=== PATIENT | female | born 1970 | race Caucasian/White ===

== ENCOUNTER 2022-06-17 16:19 | Outpatient (CLI) | payer BC, SELFPAY ==
[2022-06-17 14:13] LABS: Alanine Aminotransferase* 45 U/L (4-35); Aspartate Amino Transferase* 53 U/L (12-35)
== END 2022-06-17 16:20 | disposition home or self-care (01) ==
PROVIDERS: PCP Physician Assistant Medical; Visit Provider Physician Assistant Medical
DX: E11.9 Type 2 diabetes mellitus without complications (principal)
CPT/HCPCS: 84450; 84460

== ENCOUNTER 2022-12-22 16:05 | Emergency (ER) | payer BC, SELFPAY ==
[2022-12-22 16:08] VITALS: BP 194/64; PULSE 91; RESP 16; TEMP 36.3; O2SAT 98; BMI 31.8
--- NOTE | 2022-12-22 17:26 | CRLHL7_ITS ---
For Patients: As a result of the Century Cures Act, medical imaging exams and procedure reports are released immediately into your electronic medical record. You may view this report before your referring provider. If you have questions, please contact your health care provider. INDICATION: Right upper quadrant abdomen pain. TECHNIQUE: Ultrasound abdomen limited. Sonographic images of the right upper quadrant were obtained using givens-scale and color Doppler images. COMPARISON: None. FINDINGS: Liver: Diffuse increased echogenicity. Gallbladder: Multiple tiny shadowing stones. Normal wall thickness. Questionable trace pericholecystic fluid. Sonographic Parker sign is reported as negative by technologist. Common bile duct: 13 mm. Pancreas: Portions of the pancreas are obscured secondary to overlying bowel gas. Right kidney: Normal in size. Normal echotexture and cortex. No shadowing stones, or hydronephrosis. Vasculature: Proximal abdominal aorta and IVC are unremarkable. IMPRESSION: Multiple tiny shadowing stones. Normal wall thickness. Questionable trace pericholecystic fluid. Sonographic Parker sign is reported as negative by technologist. Common bile duct measures up to 13 millimeters. Given clinical history of painless jaundice, a more distal obstructing lesion is considered in the differential. Recommend further evaluation with dedicated abdominal MRI MRCP. Dictated by Juni Beebe MD @ 12/22/2022 6:54:41 PM (Electronically Signed)
[2022-12-22 17:47] LABS: Basophils Percent Auto 1.2 % (0.0-3.0); Eosinophils Percent Auto 1.9 % (0.0-7.0); Hematocrit 34.9 % (33.0-51.0); Hemoglobin* 11.4 gm/dL (12.0-16.0); Immature Granulocytes Pct Auto 1.4 %; Lymphocytes Percent Auto 22.8 % (20-44); Mean Corpuscular HGB Conc 33 gm/dL (32-36); Mean Corpuscular Hemoglobin 30 pg (26-34); Mean Corpuscular Volume 93 fL (80-100); Monocytes Percent Auto 7.4 % (0.0-11.0); Neutrophils Percent Auto 65.3 % (42.0-72.0); Platelet Count* 434 K/uL (140-440); RDW Coefficient of Variation % 14.4 % (11.5-15.5); Red Blood Count 3.75 m/uL (4.00-5.20); White Blood Count* 11.87 K/uL (4.50-11.00)
[2022-12-22 17:48] LABS: Slide Review Reflex No
[2022-12-22 17:52] LABS: Appearance Urine Clear (Clear); Bilirubin Urine 1+ (Negative); Blood Urine Negative (Negative); Color Urine Yellow (Yellow); Glucose Urine Negative (Negative); Ketones Urine Negative (Negative); Leukocyte Esterase Urine Negative (Negative); Nitrite Urine Negative (Negative); Protein Urine Negative (Negative); Specific Gravity Urine <= 1.005 (1.000-1.030); pH Urine 5.5 (5.0-8.5)
--- NOTE | 2022-12-22 17:53 | ED_ITS ---
HPI - General Adult General Chief complaint: Unspecified Complaint, Adult Stated complaint: Jaundice Time Seen by Provider: 12/22/22 16:22 History of Present Illness HPI narrative: 52-year-old woman presenting to the emergency department on recommendation from clinic for workup of painless jaundice. noticed 3 - 4 days ago the yellowing of her skin. Christal notes that about 10 days ago she noticed some darkening of her urine lightening of her stool and has been persistently itchy. Does endorse a history of alcohol use. Three weeks ago discontinued this as she just was not feeling very well. She has really just been trying to hydrate with water now. She has between her and her been drinking 1 L and 3/4 of vodka every 2 days mixed with Truly to some degree. They are under the impression that elevated levels of bilirubin a very dangerous and are quite con cerned here today. They are anticipating abdominal CT. Further questioning does reveal a family history of what sounds like alcoholism and liver failure I believe Christal's father. No rheumatological disorders or metabolic problems are noted. Does recall a family member with a platelet problem that may have required a splenectomy? Christal did discontinue her omeprazole for some degree of heartburn about a week ago and has not experienced heartburn since. She thought maybe she was starting to see some of the side effects. Otherwise there been no medication changes. Medications are reviewed. There are certainly medications that are liver metabolize. Otherwise has not had any fever or rash is just the itch, no recent illness or exposures, no abdominal pain episodes or persistent. Related Data Home Medications Medication Instructions Recorded Confirmed Multivitamins PO 03/12/22 12/22/22 atenolol 50 mg tablet mg PO DAILY 03/12/22 12/22/22 atorvastatin 20 mg tablet mg PO .Bedtime 03/12/22 12/22/22 calcium carbonate 600 mg-vitamin 1 tab PO DAILY 03/12/22 12/22/22 D3 20 mcg (800 unit) tablet fluticasone propionate 50 2 intranasal .Daily as needed PRN 03/12/22 12/22/22 mcg/actuation nasal spray,suspension hydroxyzine HCl 50 mg tablet mg PO PRN 03/12/22 12/22/22 mometasone 50 mcg/actuation nasal 2 intranasal DAILY 03/12/22 12/22/22 spray venlafaxine 75 mg capsule,extended 75 mg PO DAILY 03/12/22 12/22/22 release 24 hr Previous Rx's Medication Instructions Recorded epinephrine 0.3 mg/0.3 mL 0.3 mg (0.3 mL) IM .As Needed as 03/12/22 injection, auto-injector needed PRN anaphylaxis #2 ea azelastine 137 mcg (0.1 %) nasal See Rx Instructions .Route 05/06/22 spray aerosol .COMPLEX #30 mL cromolyn 4 % eye drops 1 drp ophthalmic (eye) BID PRN 05/13/22 allergic symptoms #10 mL azelastine 0.05 % eye drops 1 drp ophthalmic (eye) BID #6 mL 08/04/22 montelukast 10 mg tablet See Rx Instructions .Route 08/04/22 .COMPLEX #90 tabs metformin 500 mg tablet,extended 1,500 mg PO DAILY #270 tabs 12/03/22 release 24 hr Allergies Allergy/AdvReac Type Severity Reaction Status Date / Time Poultry Allergy Severe Anaphylaxis Verified 12/22/22 16:16 amoxicillin Allergy Intermediate Rash Verified 12/22/22 16:16 Penicillins Allergy Intermediate Rash Verified 12/22/22 16:16 azithromycin Allergy Mild Itchiness Verified 12/22/22 16:17 lisinopril AdvReac Intermediate Cough Verified 12/22/22 16:16 Review of Systems Status of ROS: Reports: 10 or more systems reviewed and unremarkable except as noted in History and below [facility] Surgical History History of dilation and curettage ?Z98.890 - Other specified postprocedural states (ICD-10) History of tonsillectomy and adenoidectomy ?Z90.89 - Acquired absence of other organs (ICD-10) Family History Other High blood pressure Hyperlipidemia Lung cancer Prostate cancer Social History Narrative: - newly remarried; 2020- Tim Smoking Status: Former smoker Do you use any of these nicotine containing products: None Second hand tobacco smoke exposure: No How often do you have a drink containing alcohol: 4 or more times a week How many standard drinks containing alcohol do you have on a typical day: 3 or 4 How often do you have six or more drinks on one occasion: Weekly AUDIT-C Alcohol total score: 8 Non-prescribed substance use: denies use Little interest or pleasure in doing things: not at all Feeling down, depressed, or hopeless: not at all Exam Narrative: Exam Narrative: Very pleasant. Mildly anxious I think appropriately so. Skin is warm and dry with some degree of jaundice extending to mid thorax. Scleral icterus is evident. Oropharynx is moist neck is supple without LA. Lungs appear to be clear. Heart with intermittently irregular rhythm. Mildly elevated rate. No murmur rub or gallop otherwise identified. Abdomen is soft overweight. Unconvinced of hepatomegaly. Nontender. No masses appreciated. No fluid wave apparent. Cranial nerves 2-12 intact. Breathing easily. Extremities are well perfused. She has trace lower extremity nonpitting edema. Const: Vital Signs, click to edit/add: Vital Signs - 24 hr 12/22/22 16:08 12/22/22 19:07 12/22/22 20:04 Temperature 97.4 F L Pulse Rate [Pulse Oximeter] 91 83 82 Respiratory Rate 16 18 17 Blood Pressure [Ri ght Upper Arm] 194/64 H 194/82 H 198/110 H Pulse Oximetry 98 95 95 Oxygen Delivery Me thod Room Air Room Air Documenting provider has reviewed patient's vital signs: yes Course Vital Signs Vital signs: Initial Vital Signs Temperature 97.4 F L 12/22/22 16:08 Temperature Source Temporal Artery Scan 12/22/22 16:08 Pulse Rate 91 12/22/22 16:08 Respiratory Rate 16 12/22/22 16:08 Blood Pressure 194/64 H 12/22/22 16:08 Blood Pressure Mean 107 H 12/22/22 16:08 Blood Pressure Position Sitting 12/22/22 16:08 Pulse Oximetry 98 12/22/22 16:08 Oxygen Delivery Method Room Air 12/22/22 16:08 Vital Signs Temperature 97.4 F L 12/22/22 16:08 Pulse Rate 91 12/22/22 16:08 Respiratory Rate 16 12/22/22 16:08 Blood Pressure 194/64 H 12/22/22 16:08 Pulse Oximetry 98 12/22/22 16:08 Oxygen Delivery Method Room Air 12/22/22 16:08 Temperature 97.4 F L 12/22/22 16:08 Pulse Rate 82 12/22/22 20:04 Respiratory Rate 17 12/22/22 20:04 Blood Pressure 198/110 H 12/22/22 20:04 Pulse Oximetry 95 12/22/22 20:04 Oxygen Delivery Method Room Air 12/22/22 20:04 Medical Decision Making MDM Narrative Medical decision making narrative: Differential of jaundice is certainly broad. I suspect alcohol-related. Does not sound to be obstructive and is afebrile without pain so less likely and less likely to be infectious. I do not appreciate skin pigmentation changes beyond the jaundice so probably not hemochromatosis. I do not appreciate splenomegaly. History of mildly elevated transaminases. Will order ultrasound and standard labs. Review labs with primarily direct/conjugated hyperbilirubinemia. Mildly elevated white count. CRP 1.5. Negative acetaminophen and alcohol levels. Urinalysis shows bilirubin as expected. I discussed results of ultrasound with the technical support specialist. Ultrasound with numerous small gallstones, normal gallbladder wall thickness, common bile duct at up to 13 mm Occasionally is relatively pain free. Unsure if the heartburn that have been describing up until a week ago is related. Concern still of distal obstruction of some sort. I would presume need for next level imaging whether it is MRCP or ERCP. I did discuss with our surgeon recommending ERCP which we do not do in this facility. Have discussed with [facility] or accepting in transfer for next steps in cares. This possibility of being ?put under? for Christal is very upsetting; she becomes tearful. Blood pressures have been elevated 190s over on 110 most recently. I think some degree of stress is playing a role in elevated blood pressure. Does not otherwise seem to be in alcohol withdrawal. Nor does she seem septic. Will order some Ativan IV. Discussed with hospitalist at [facility] who is accepting for admission there. Transferred via ground ambulance. Lab Data Lab results reviewed: Yes I reviewed the patient's lab results Labs: Lab Results 12/22/22 12/22/22 12/22/22 Range/Units 16:30 16:55 17:32 WBC 11.87 H (4.50-11.00) K/uL RBC 3.75 L (4.00-5.20) m/uL Hgb 11.4 L (12.0-16.0) gm/dL Hct 34.9 (33.0-51.0) % MCV 93 (80-100) fL MCH 30 (26-34) pg MCHC 33 (32-36) gm/dL RDW Coeff of Jovan 14.4 (11.5-15.5) % Plt Count 434 (140-440) K/uL Neut % (Auto) 65.3 (42.0-72.0) % Lymph % (Auto) 22.8 (20-44) % Garden % (Auto) 7.4 (0.0-11.0) % Eos % (Auto) 1.9 (0.0-7.0) % Baso % (Auto) 1.2 (0.0-3.0) % Neut # (Auto) 7.80 H (1.7-7.0) K/uL Lymph # (Auto) 2.70 (0.90-2.90) K/uL Garden # (Auto) 0.90 (0.00-0.90) K/UL Eos # (Auto) 0.20 (0.00-0.50) K/uL Baso # (Auto) 0.10 (0.00-0.30) K/uL INR 0.87 L (0.91-1.10) Sodium 137 (135-149) mmol/L Potassium 3.6 (3.6-5.1) mmol/L Chloride 101 (96-114) mmol/L Carbon Dioxide 27 (20-32) mmol/L BUN 11 (7-30) mg/dL Creatinine 0.5 (0.5-1.5) mg/dL Estimated Creat Clear 112.36 Estimated GFR 112 ml/min Glucose 134 H (60-115) mg/dL Calcium 9.5 (8.4-10.6) mg/dL Magnesium 1.6 (1.5-2.6) mg/dL Total Bilirubin 10.8 H (0.1-1.5) mg/dL Direct Bilirubin 9.7 H (0.0-0.5) mg/dL AST 284 H (12-35) U/L ALT 372 H (4-35) U/L Alkaline Phosphatase 878 H (40-150) U/L C-Reactive Protein 1.5 H (0.5-1.0) mg/dL NT-Pro-B Natriuret Pep 684 pg/mL Total Protein 7.7 (6.0-8.3) g/dL Albumin 4.0 (3.3-5.0) g/dL Lipase 178 (23-300) U/L Urine Color Yellow (Yellow) Urine Appearance Clear (Clear) Urine pH 5.5 (5.0-8.5) Ur Specific [place] <= 1.005 (1.000-1.030) Urine Protein Negative (Negative) Urine Glucose (UA) Negative (Negative) Urine Ketones Negative (Negative) Urine Blood Negative (Negative) Urine Nitrite Negative (Negative) Urine Bilirubin 1+ A (Negative) Urine Urobilinogen 1.0 (0.2-1.0) Ur Leukocyte Esterase Negative (Negative) Urine RBC 0-2 (0-2) Urine WBC 0-2 (0-5) Ur Squamous Epith Cells Few (None-Few) Urine Bacteria Few A (None) Acetaminophen < 10.0 L (10.0-30.0) ug/mL Ethyl Alcohol < 0.01 L (0.01-0.03) % SARS-CoV-2 (PCR) Negative SARS-CoV-2 (Negative) Discharge Plan Discharge Clinical Impression: Direct hyperbilirubinemia, Cholelithiasis Patient Disposition: [facility] Condition: Stable Prescriptions: No Action calcium carbonate-vitamin D3 600 mg-20 mcg (800 unit) tablet 1 tab PO DAILY Multivitamins PO atenolol 50 mg tablet PO DAILY fluticasone propionate 50 mcg/actuation spray,suspension 2 intranasal .Daily as needed PRN hydroxyzine HCl 50 mg tablet PO PRN Hold Instructions: Order Change atorvastatin 20 mg tablet PO .Bedtime venlafaxine 75 mg capsule,extended release 24hr 75 mg PO DAILY mometasone 50 mcg/actuation spray,non-aerosol 2 intranasal DAILY epinephrine 0.3 mg/0.3 mL auto-injector 0.3 mg IM .As Needed as needed PRN (Reason: anaphylaxis) Qty: 2 0RF Rx Instructions: Severe poultry and PCN allergy azelastine 137 mcg (0.1 %) aerosol,spray See Rx Instructions .ROUTE .COMPLEX Qty: 30 3RF Dose Instruction: USE 2 SPRAYS NASALLY TWICE A DAY Rx Instructions: USE 2 SPRAYS NASALLY TWICE A DAY cromolyn 4 % drops 1 drp ophthalmic (eye) BID PRN (Reason: allergic symptoms) Qty: 10 3RF montelukast 10 mg tablet See Rx Instructions .ROUTE .COMPLEX Qty: 90 1RF Dose Instruction: TAKE 1 TABLET AT BEDTIME ONCE DAILY FOR SEASONAL ALLERGIES/ALLERGIC RHINITIS Rx Instructions: TAKE 1 TABLET AT BEDTIME ONCE DAILY FOR SEASONAL ALLERGIES/ALLERGIC RHINITIS azelastine 0.05 % drops 1 drp ophthalmic (eye) BID Qty: 6 3RF metformin 500 mg tablet extended release 24 hr 1,500 mg PO DAILY Qty: 270 1RF Stand Alone Forms: [employer] Info Instructions
[2022-12-22 18:02] LABS: Chloride* 101 mmol/L (96-114); Sodium* 137 mmol/L (135-149)
[2022-12-22 18:03] LABS: Potassium* 3.6 mmol/L (3.6-5.1)
[2022-12-22 18:04] LABS: Creatinine* 0.5 mg/dL (0.5-1.5); Est. Creatinine Clearance* 112.36; Estimated Glomerular Filt Rate 112 ml/min
[2022-12-22 18:05] LABS: Alkaline Phosphatase* 878 U/L (40-150); Aspartate Amino Transferase* 284 U/L (12-35); Bilirubin Direct* 9.7 mg/dL (0.0-0.5); Bilirubin Total* 10.8 mg/dL (0.1-1.5); Blood Urea Nitrogen* 11 mg/dL (7-30); Carbon Dioxide* 27 mmol/L (20-32); Glucose* 134 mg/dL (60-115); Lipase* 178 U/L (23-300); Total Protein* 7.7 g/dL (6.0-8.3)
[2022-12-22 18:06] LABS: Alanine Aminotransferase* 372 U/L (4-35); Calcium* 9.5 mg/dL (8.4-10.6); Magnesium* 1.6 mg/dL (1.5-2.6)
[2022-12-22 18:08] LABS: C Reactive Protein* 1.5 mg/dL (0.5-1.0)
[2022-12-22 18:12] LABS: Acetaminophen* < 10.0 ug/mL (10.0-30.0); Ethanol* < 0.01 % (0.01-0.03)
[2022-12-22 18:18] LABS: Bacteria Urine Few; RBC Urine 0-2 (0-2); Squamous Epithelial Cell Urine Few (None-Few); WBC Urine 0-2 (0-5)
[2022-12-22 18:22] LABS: NT Pro B Type NatriureticPept* 684 pg/mL
[2022-12-22 18:36] LABS: SARS PCR* Negative SARS-CoV-2 (Negative)
[2022-12-22 19:07] VITALS: BP 194/82; PULSE 83; RESP 18; O2SAT 95
[2022-12-22 19:13] LABS: INR 0.87 (0.91-1.10); Prothrombin Time 12.4 Seconds
[2022-12-22 20:04] VITALS: BP 198/110; PULSE 82; RESP 17; O2SAT 95
[2022-12-22] MEDS: 0.9 % SODIUM CHLORIDE 1000 ml 1,000 ML 6000 ML IV (21:09)
[2022-12-22] MEDS: LORazepam 2 MG/ML inj 0.5 MG IVP (21:09)
--- NOTE | 2022-12-22 21:10 | ED.NURSE ---
Nurse report given.
== END 2022-12-22 22:33 | disposition home or self-care (01) ==
PROVIDERS: Emergency Provider Family Medicine; PCP Physician Assistant Medical
DX: K80.20 Calculus of gallbladder without cholecystitis without obstruction (principal); E80.6 Other disorders of bilirubin metabolism
CPT/HCPCS: 36415; 76705; 80048; 80076; 80143; 81001; 82077; 83690; 83735; 83880; 85025; 85610; 86140; 87086; 87635; 96374; 99284; 99285; J2060; J7030

== ENCOUNTER 2022-12-22 21:59 | Outpatient (CLI) | payer BC, SELFPAY | END 2022-12-22 22:00 | disposition home or self-care (01) | LOC: AMB 12-24 12:13 | PROVIDERS: PCP Physician Assistant Medical; Visit Provider Family Medicine | DX: R17 Unspecified jaundice (principal); R10.9 Unspecified abdominal pain | CPT/HCPCS: A0425; A0426; A0428 ==

== ENCOUNTER 2023-02-11 15:39 | Outpatient (CLI) | payer BC, SELFPAY | END 2023-02-11 15:40 | disposition home or self-care (01) | PROVIDERS: PCP Physician Assistant Medical; Visit Provider Physician Assistant Medical | DX: E11.9 Type 2 diabetes mellitus without complications (principal); D64.9 Anemia, unspecified; R79.89 Other specified abnormal findings of blood chemistry; I10 Essential (primary) hypertension; E78.5 Hyperlipidemia, unspecified | CPT/HCPCS: 80053; 83690; 86140 ==

== ENCOUNTER 2023-03-08 12:15 | Outpatient (CLI) | payer BC, SELFPAY | END 2023-03-08 12:16 | disposition home or self-care (01) | PROVIDERS: PCP Physician Assistant Medical; Visit Provider Physician Assistant Medical | DX: R53.83 Other fatigue (principal); R79.89 Other specified abnormal findings of blood chemistry; E78.5 Hyperlipidemia, unspecified; I10 Essential (primary) hypertension; E11.9 Type 2 diabetes mellitus without complications; D64.9 Anemia, unspecified | CPT/HCPCS: 80076; 82607; 83690 ==

== ENCOUNTER 2023-03-17 08:50 | Outpatient (CLI) | payer BC, SELFPAY ==
--- NOTE | 2023-04-28 08:36 | W.PM.SLEEP ---
Sleep Study Details Details Interpreting Provider: Laina Date of Sleep Study: 03/17/23 Sleep Study Details: STUDY TYPE:? Home unattended ? BMI:? 30.7 ORDERING PROVIDER:Mallory Calzada INDICATION:? Concerns about sleep apnea ? SLEEP SUMMARY:? 536.5 minutes monitored RESPIRATORY SUMMARY:? AHI 21.8, supine 61.9, left lateral 11.4, right lateral 25.1 Low oxygen 76 1.9% of study oxygen less than 90% Snoring 58.4% PERIODIC LIMB MOVEMENTS OF SLEEP:? Not recorded during home study CARDIAC:? Range 40-114, mean 80.4 IMPRESSION:? Moderate obstructive sleep apnea with supine position dependency Bradycardia noted during study RECOMMENDATION: Initiate AutoSet CPAP pressure 4-17. Further cardiac evaluation such as Holter monitoring may be indicated.
== END 2023-03-17 08:51 | disposition home or self-care (01) ==
PROVIDERS: PCP Physician Assistant Medical; Visit Provider Physician Assistant Medical
DX: Z00.00 Encounter for general adult medical examination without abnormal findings (principal); R53.83 Other fatigue; E78.5 Hyperlipidemia, unspecified; I10 Essential (primary) hypertension; E11.9 Type 2 diabetes mellitus without complications
CPT/HCPCS: 80053; 80061

== ENCOUNTER 2023-04-12 20:00 | Outpatient (CLI) | payer BC, SELFPAY | END 2023-04-12 20:01 | disposition home or self-care (01) | LOC: SLEEP 05-12 13:45 | PROVIDERS: PCP Physician Assistant Medical; Visit Provider Otolaryngology | DX: G47.33 Obstructive sleep apnea (adult) (pediatric) (principal) | CPT/HCPCS: 95806 ==

== ENCOUNTER 2023-06-10 09:26 | Outpatient (CLI) | payer BC, SELFPAY | END 2023-06-10 09:27 | disposition home or self-care (01) | PROVIDERS: PCP Physician Assistant Medical; Visit Provider Physician Assistant Medical | DX: R79.89 Other specified abnormal findings of blood chemistry (principal); E11.9 Type 2 diabetes mellitus without complications; E78.5 Hyperlipidemia, unspecified; I10 Essential (primary) hypertension | CPT/HCPCS: 80053; 86140 ==

== ENCOUNTER 2023-07-12 07:53 | Outpatient (CLI) | payer BC, SELFPAY ==
--- NOTE | 2023-07-12 10:42 | W.ANESCHARGE ---
Anesthesia Charges Start Date/Time Anesthesia Start Date: 07/12/23 Anesthesia Start Time: 09:45 Stop Date/Time Anesthesia Stop Date: 07/12/23 Anesthesia Stop Time: 10:38
--- NOTE | 2023-07-12 11:22 | W.ANESCHARGE ---
Anesthesia Charges Start Date/Time Anesthesia Start Date: 07/12/23 Anesthesia Start Time: 09:45 Stop Date/Time Anesthesia Stop Date: 07/12/23 Anesthesia Stop Time: 10:38
== END 2023-07-12 07:54 | disposition home or self-care (01) ==
LOC: OP CLINIC 07:54
PROVIDERS: PCP Physician Assistant Medical; Visit Provider Surgery
DX: Z12.11 Encounter for screening for malignant neoplasm of colon (principal); K63.5 Polyp of colon; K57.30 Diverticulosis of large intestine without perforation or abscess without bleeding; R19.8 Other specified symptoms and signs involving the digestive system and abdomen
CPT/HCPCS: 00813; 43239; 45385; 88305; J2704

== ENCOUNTER 2024-09-14 08:52 | Outpatient (CLI) | payer OTHER, SELFPAY | END 2024-09-14 08:53 | disposition home or self-care (01) | LOC: NFLDREF 09-18 03:02 | PROVIDERS: PCP Physician Assistant Medical; Referring Provider Physician Assistant Medical; Visit Provider Physician Assistant Medical | DX: I10 Essential (primary) hypertension (principal); E78.5 Hyperlipidemia, unspecified; E11.9 Type 2 diabetes mellitus without complications; R79.89 Other specified abnormal findings of blood chemistry | CPT/HCPCS: 80053; 80061; 82043; 82570; 82607; 84443 ==

== ENCOUNTER 2025-03-19 08:51 | Outpatient (CLI) | payer OTHER, SELFPAY | END 2025-03-19 08:52 | disposition home or self-care (01) | LOC: NFLDREF 03-20 13:19 | PROVIDERS: PCP Physician Assistant Medical; Referring Provider Physician Assistant Medical; Visit Provider Physician Assistant Medical | DX: E11.9 Type 2 diabetes mellitus without complications (principal) | CPT/HCPCS: 80048 ==